=== PATIENT | male | born 1965 | race Caucasian/White ===

== ENCOUNTER 2016-11-17 10:01 | Emergency (ER) ==
[2016-11-17 10:19] VITALS: BP 137/85; TEMP 98.8; BMI 32.5
[2016-11-17] MEDS: LIDOCAINE 1 % AMP 5 ML (SUTURES) SUBCUT STA (11:29)
--- NOTE | 2016-11-17 12:01 | ED.PDOC ---
General ED Provider: Dr. JERRY MURPHY Chief Complaint: Face Laceration Stated Complaint: left ear laceration Time Seen by Physician: 10:00 (sustined by a sharp object 2 hours ago) Mode of Arrival: Walk-In Information Source: Patient Exam Limitations: No limitations Nursing and Triage Documentation Reviewed and Agree: Yes Skin Complaint Exam - Laceration/Head/Facial Complaint/Exam Location of Injury: Other (leftear laceration) Mechanism of Injury: Laceration Onset/Duration: 2 hours Symptoms Are: Still present Initial Severity: Mild Current Severity: Mild Aggravating: None Alleviating: None Associated Signs and Symptoms: Denies: Fever, Chills, Erythema, Numbness, Tingling Differential Diagnoses: Laceration Review of Systems - Review Of Systems Constitutional: Reports: No symptoms Eyes: Reports: No symptoms Ears, Nose, Mouth, Throat: Reports: No symptoms Respiratory: Reports: No symptoms Cardiac: Reports: No symptoms GI: Reports: No symptoms : Reports: No symptoms Musculoskeletal: Reports: No symptoms Skin: Reports: Other (ear laceration) Neurological: Reports: No symptoms Endocrine: Reports: No symptoms Hematologic/Lymphatic: Reports: No symptoms All Other Systems: Reviewed and Negative Past Medical History - Past Medical History Previously Healthy: Yes Endocrine: Reports: None Cardiovascular: Reports: None Respiratory: Reports: None Hematological: Reports: None Gastrointestinal: Reports: None Genitourinary: Reports: None Neuro/Psych: Reports: None Musculoskeletal: Reports: None Cancer: Reports: None - Surgical History General Surgical History: Reports: None - Family History Family History: Reports: None - Social History Smoking Status: Current some day smoker, Light tobacco smoker Hx Substance Use: No Alcohol Screening: None - Immunizations Tetanus Shot up to Date: Yes (1 WEEK) Physical Exam - Physical Exam Appearance: Well-appearing, No pain distress, Well-nourished Eyes: SANDIE, EOMI, Conjunctiva clear ENT: Ears normal (right left ear lobe has 2 laceration 1 cm in lenght full thickness of pinna is involved ) Respiratory: Airway patent, Breath sounds clear, Breath sounds equal, Respirations nonlabored Cardiovascular: RRR, Pulses normal, No rub, No murmur GI/: Soft, Nontender, No masses, Bowel sounds normal, No Organomegaly Musculoskeletal: Normal strength, ROM intact, No edema, No calf tenderness Skin: Warm, Dry, Normal color Neurological: Sensation intact, Motor intact, Reflexes intact, Cranial nerves intact, Alert, Oriented Psychiatric: Affect appropriate, Mood appropriate Procedures - Laceration/Wound Repair No standard instances Wound Description: Irregular, Other (pinna of left ear) Wound Length (cm): 1 cm Wound Width: 3mm Wound Depth: 3mm Wound Explored: Clean Wound Irrigated: Yes Wound Prep: Hibiclens Anesthesia: Lidocaine (plain 1 ml) Undermining: Minimal Wound Margins: Vermilion border aligned Wound Repaired With: Sutures Suture Size and Type: 4prolene Number of Sutures: 6 Critical Care Note - Critical Care Note Total Time (mins): 0 Course - Course Orders, Labs, Meds: Orders Category Date Time Status Lidocaine HCl/Pf [Lidocaine 1 % Amp 5 ml (Sutures)] MEDS 11/17/16 10:52 Stat 5 ml SUBCUT ONCE STA Tetanus and Diphtheria Tox/Pf [Tenivac] MEDS 11/17/16 10:53 Once 0.5 ml IM .ONCE ONE Medications Discontinued Medications Generic Name Dose Route Start Last Admin Trade Name Freq PRN Reason Stop Dose Admin Lidocaine HCl 5 ml 11/17/16 10:52 11/17/16 11:29 Lidocaine 1 % Amp 5 Ml (Sutures) SUBCUT 11/17/16 10:53 5 ml ONCE STA Administration Tetanus/Diphtheria Toxoids Adsorbed 0.5 ml 11/17/16 10:53 Tenivac IM 11/17/16 10:54 .ONCE ONE Vital Signs: Temp Pulse Resp BP Pulse Ox 11/17/16 10:03 98.8 F 87 20 137/85 98 Departure - Departure Time of Disposition: 12:03 Disposition: HOME SELF-CARE Discharge Problem: Laceration of left ear Qualifiers: Encounter type: initial encounter Qualifier Code: (S01.312A) Laceration without foreign body of left ear, initial encounter Instructions: Laceration (ED), Care For Your Stitches (ED), Stitches Removal ( ED), Facial Laceration (ED) Condition: Good Pt referred to PMD for follow-up: No Additional Instructions: Please call your Family Physician as soon as possible to schedule a follow-up appointment. Allergies/Adverse Reactions: Allergies buspirone [From BuSpar] Adverse Reaction (Verified 11/17/16 10:11) Home Medications: Ambulatory Orders Cephalexin [Keflex] 500 mg PO Q8HR #20 capsule 11/17/16 Clonazepam [Klonopin] 1 mg PO TID PRN 11/17/16 Duloxetine HCl [Cymbalta] 60 mg PO DAILY 11/17/16 Gabapentin [Neurontin] 300 mg PO TID 11/17/16 Disposition Discussed With: Patient, Family
[2016-11-17] MEDS: TENIVAC IM ONE (12:07)
== END 2016-11-17 12:15 | disposition home or self-care (01) ==
LOC: ED 10:01
DX: S01.312A Laceration without foreign body of left ear, initial encounter (principal); F17.210 Nicotine dependence, cigarettes, uncomplicated; W45.8XXA Other foreign body or object entering through skin, initial encounter
CPT/HCPCS: 99283